=== PATIENT | female | born 1965 | race Caucasian/White ===

== ENCOUNTER 2016-09-14 03:42 | Observation (INO) | payer MEDICARE ==
[~2016-09-14] VITALS: Ht 160 cm; Wt 55.8 kg
[2016-09-14] MEDS ORDERED: NEURONTIN 400400 MG PO (05:05)
[2016-09-14] MEDS ORDERED: PERCOCET 10-321 EACH PO (05:05)
[2016-09-14] MEDS ORDERED: ZANTAC 150 MG150 MG PO (05:06)
[2016-09-14] MEDS ORDERED: LISINOPRIL10 MG PO (05:06)
[2016-09-14 09:17] LABS: HEMOGLOBIN 11.2 gm/dl (12.3-15.3); RED BLOOD COUNT 3.81 M/UL (4.00-5.10); WHITE BLOOD COUNT 9.7 K/UL (4.5-11.0)
[2016-09-14 09:32] LABS: BUN/CREATININE RATIO 12 (0-10)
== END 2016-09-14 19:15 | disposition left against medical advice (07) ==
LOC: PROG CARE 04:34
PROVIDERS: ADMIT Internal Medicine
DX: R56.9 Unspecified convulsions (principal); J44.9 Chronic obstructive pulmonary disease, unspecified; M51.36 Other intervertebral disc degeneration, lumbar region; G89.29 Other chronic pain; F41.1 Generalized anxiety disorder; F17.210 Nicotine dependence, cigarettes, uncomplicated; Z79.891 Long term (current) use of opiate analgesic; Z79.899 Other long term (current) drug therapy
CPT/HCPCS: 36415; 70553; 80048; 83605; 85027; 95819; 96374; A9577; G0378; G0379; J1953; J7030; J7050